=== PATIENT | female | born 1975 | race African-American/Black ===

== ENCOUNTER 2022-07-01 19:04 | Inpatient (IN) | payer BC ==
[~2022-07-01] VITALS: Ht 162.6 cm; Wt 117.7 kg
[2022-07-01] MEDS ORDERED: ACETAMINOPHEN 325MG TABLET PO ONE (20:00)
[2022-07-01] MEDS ORDERED: FAMOTIDINE 20MG TABLET PO ONE (20:00)
[2022-07-01] MEDS ORDERED: ONDANSETRON 4MG ODT PO ONE (20:00)
[2022-07-01 20:21] LABS: HEMOGLOBIN. 15.1 g/dL (12.0-16.0); MEAN CORPUSCULAR HEMOGLOBIN 25.5 pg (28.0-32.0); MEAN CORPUSCULAR VOLUME 77.4 fL (81.0-99.0); MEAN PLATELET VOLUME 10.2 fl (7.4-10.4); PLATELET 153 x1000/uL (130-400); RED BLOOD CELL COUNT 5.94 mill/uL (4.2-5.4); RED CELL DISTRIBUTION WIDTH 16.9 % (11.6-14.6)
[2022-07-01 20:32] LABS: CHLORIDE 105 mEq/L (98-107); HCG SCREEN NEGATIVE
[2022-07-01] MEDS ORDERED: SODIUM CHLORIDE 0.9% 1,000 ML IV ONE ×2 (21:15→23:30)
[2022-07-01 22:16] LABS: PLATELET ESTIMATE NORMAL
[2022-07-01] MEDS ORDERED: MORPHINE SULFATE 4 MG/ML CPJ (NOT FOR IM USE) IV ONE (23:30)
[2022-07-02] MEDS ORDERED: GUAIFENESIN 200MG/10ML SUGAR FREE UDC PO PRN (03:15)
[2022-07-02] MEDS ORDERED: SODIUM CHLORIDE 0.9% 1,000 ML IV SCH (03:15)
[2022-07-02] MEDS ORDERED: LOPERAMIDE HCL 2MG CAPSULE PO PRN (03:15)
[2022-07-02] MEDS ORDERED: IPRATROPIUM/ALBUTEROL 0.5-3(2.5)MG/3ML NEB HHN PRN (03:15)
[2022-07-02] MEDS ORDERED: HYDROCODONE/ACETAMINOPHEN 5/325MG TABLET PO PRN (03:15)
[2022-07-02] MEDS ORDERED: ONDANSETRON HCL 4MG/2ML INJ IV PRN (03:15)
[2022-07-02] MEDS ORDERED: DOCUSATE SODIUM 100MG CAPSULE PO PRN (03:15)
[2022-07-02] MEDS ORDERED: CEFTRIAXONE 1GM PREMIX 50 ML IV NR (03:15)
[2022-07-02] MEDS ORDERED: ACETAMINOPHEN 325MG TABLET PO PRN ×2 (03:15)
[2022-07-02] MEDS ORDERED: MAGNESIUM/ALUMINUM HYDROXIDE/SIMETHICONE 30ML UDC PO PRN (03:15)
[2022-07-02] MEDS ORDERED: CLONIDINE 0.1MG TABLET PO PRN (03:15)
[2022-07-02] MEDS ORDERED: IPRATROPIUM BROMIDE (0.02%) 0.5MG/2.5ML NEB HHN PRN (03:30)
[2022-07-02] MEDS ORDERED: ALBUTEROL (0.083%) 2.5MG/3ML NEB HHN PRN (03:30)
[2022-07-02 04:07] LABS: BASOPHILS % 0.2 % (0.0-2.0); HEMATOCRIT. 40.9 % (36.0-48.0); HEMOGLOBIN. 13.5 g/dL (12.0-16.0); LYMPHOCYTES % 6.5 % (20.0-50.0); MEAN CORPUSCULAR HEMOGLOBIN 25.5 pg (28.0-32.0); MEAN CORPUSCULAR VOLUME 77.2 fL (81.0-99.0); MEAN PLATELET VOLUME 10.8 fl (7.4-10.4); MONOCYTES % 5.2 % (2.0-8.0); NEUTROPHILS % 87.1 % (40.0-76.0); PLATELET 113 x1000/uL (130-400); RED CELL DISTRIBUTION WIDTH 16.5 % (11.6-14.6)
[2022-07-02 04:21] LABS: CLARITY URINE CLEAR (CLEAR); COLOR URINE YELLOW (YELLOW); KETONES URINE TRACE (NEGATIVE); LEUKOCYTE ESTERASE URINE NEGATIVE (NEGATIVE); NITRITE URINE NEGATIVE (NEGATIVE); OCCULT BLOOD URINE NEGATIVE (NEGATIVE); PH URINE 5.5 (4.5-8.0); PROTEIN URINE TRACE (NEGATIVE); SPECIFIC GRAVITY URINE 1.025 (1.005-1.030); UROBILINOGEN URINE 0.2 E.U./dL (0.2-1.0)
[2022-07-02] MEDS: PANTOPRAZOLE SODIUM 40 MG/VIAL IV SCH (10:26)
[2022-07-02] MEDS: DEXT 5%/0.9% NACL 1,000 ML IV SCH ×2 (10:27→20:47)
[2022-07-02] MEDS: ENOXAPARIN 30MG/0.3ML SYR SUBCUT SCH ×2 (10:27→20:47)
[2022-07-02 11:44] VITALS: BP 123/78
[2022-07-02 12:00] VITALS: BP 123/77
[2022-07-02] MEDS ORDERED: FAMO20TA8 MT (12:18)
[2022-07-02] MEDS ORDERED: ACYC200C31 PO (12:18)
[2022-07-02] MEDS ORDERED: FOLI0.4T6 MT (12:18)
[2022-07-02] MEDS ORDERED: FLUT9.9S BOTHNSTRLS (12:18)
[2022-07-02] MEDS ORDERED: CETI5TAB5 MT (12:18)
[2022-07-02] MEDS ORDERED: HYDR200T35 PO (12:18)
[2022-07-02 16:00] VITALS: BP 116/78
[2022-07-02 20:00] VITALS: BP 122/84
[2022-07-03] VITALS: BP 110/71
[2022-07-03] MEDS ORDERED: CEFTRIAXONE 1,000 MG in DEXTROSE 5% WATER 50 ML IV SCH (03:30)
[2022-07-03 04:00] VITALS: BP 106/60
[2022-07-03 06:45] LABS: BASOPHILS % 0.2 % (0.0-2.0); EOSINOPHILS % 2.6 % (0.0-5.0); HEMATOCRIT. 37.8 % (36.0-48.0); HEMOGLOBIN. 12.3 g/dL (12.0-16.0); LYMPHOCYTES % 35.2 % (20.0-50.0); MEAN CORPUSCULAR HEMOGLOBIN 25.1 pg (28.0-32.0); MEAN PLATELET VOLUME 10.6 fl (7.4-10.4); MONOCYTES % 8.3 % (2.0-8.0); NEUTROPHILS % 53.7 % (40.0-76.0); PLATELET 137 x1000/uL (130-400); RED CELL DISTRIBUTION WIDTH 16.7 % (11.6-14.6)
[2022-07-03 06:55] LABS: CHLORIDE 110 mEq/L (98-107)
[2022-07-03 07:09] LABS: HDL CHOLESTEROL 58 mg/dL (40-59); LDL CHOLESTEROL 112 mg/dL (5-100)
[2022-07-03 08:00] VITALS: BP 130/70
[2022-07-03] MEDS: ENOXAPARIN 30MG/0.3ML SYR SUBCUT SCH (08:30)
[2022-07-03] MEDS: PANTOPRAZOLE SODIUM 40 MG/VIAL IV SCH (08:30)
[2022-07-03] MEDS ORDERED: POTASSIUM CHLORIDE 20MEQ TABLET SR PO NR (10:00)
[2022-07-03 12:00] VITALS: BP 123/69
[2022-07-03] MEDS: DEXT 5%/0.9% NACL 1,000 ML IV SCH (12:25)
[2022-07-03 15:44] VITALS: BP 125/69
[2022-07-03 16:00] VITALS: BP 144/96
[2022-07-03] MEDS ORDERED: NALOXONE HCL 0.4MG/ML VIAL IV PRN (17:30)
== END 2022-07-03 17:39 | disposition home or self-care (01) | DRG 392 ==
LOC: ER 19:04 → MICUSO 07-02 00:39 → 7EST 07-02 08:55
PROVIDERS: ADMIT Hospitalist; ATTEND Hospitalist
DX: K52.9 Noninfective gastroenteritis and colitis, unspecified (principal); E86.0 Dehydration; J45.909 Unspecified asthma, uncomplicated; M32.9 Systemic lupus erythematosus, unspecified; D72.829 Elevated white blood cell count, unspecified; Z86.711 Personal history of pulmonary embolism; Z95.828 Presence of other vascular implants and grafts; Z88.8 Allergy status to other drugs, medicaments and biological substances; Z79.899 Other long term (current) drug therapy
CPT/HCPCS: 36415; 71045; 74176; 80053; 80061; 81003; 83036; 84439; 84443; 84703; 85025; 85379; 93970; 99285; C1893; C9113; J0696; J1650; J2270; J7030; J7042; Q0162